=== PATIENT | female | born 1995 | race Caucasian/White ===

== ENCOUNTER → 2019-09-26 08:20 | Outpatient (CLI) | payer MEDICAID | END | disposition home or self-care (01) | LOC: D.LDO 08:20 | PROVIDERS: ATTEND Student in an Organized Health Care Education/Training Program | DX: O26.899 Other specified pregnancy related conditions, unspecified trimester (principal); Z3A.00 Weeks of gestation of pregnancy not specified; R05 Cough ==

== ENCOUNTER → 2019-12-31 10:47 | Outpatient (CLI) | payer MEDICAID | END | disposition home or self-care (01) | LOC: D.LDO 10:47 | PROVIDERS: ATTEND Obstetrics & Gynecology | DX: O36.5930 Maternal care for other known or suspected poor fetal growth, third trimester, not applicable or unspecified (principal); Z3A.34 34 weeks gestation of pregnancy ==

== ENCOUNTER → 2020-01-06 14:41 | Outpatient (CLI) | payer MEDICAID | LOC: D.LDO 14:41 | PROVIDERS: ATTEND Obstetrics & Gynecology | DX: O36.5930 Maternal care for other known or suspected poor fetal growth, third trimester, not applicable or unspecified (principal); Z3A.34 34 weeks gestation of pregnancy ==

== ENCOUNTER 2020-01-20 19:48 | Outpatient (CLI) | payer MEDICAID | END 2020-01-20 20:32 | disposition home or self-care (01) | LOC: D.LDO 19:48 | PROVIDERS: ATTEND Student in an Organized Health Care Education/Training Program | DX: O36.5990 Maternal care for other known or suspected poor fetal growth, unspecified trimester, not applicable or unspecified (principal); Z3A.00 Weeks of gestation of pregnancy not specified ==

== ENCOUNTER 2020-01-24 19:13 | Outpatient (CLI) | payer MEDICAID | END 2020-01-24 19:58 | disposition home or self-care (01) | LOC: D.LDO 19:13 | PROVIDERS: ATTEND Obstetrics & Gynecology | DX: O36.8930 Maternal care for other specified fetal problems, third trimester, not applicable or unspecified (principal); Z3A.37 37 weeks gestation of pregnancy ==

== ENCOUNTER 2020-02-01 10:53 | Outpatient (CLI) | payer MEDICAID ==
[2020-02-01 21:45] VITALS: BMI 24.2
== END 2020-02-01 11:35 | disposition home or self-care (01) ==
LOC: D.LDO 10:53
PROVIDERS: ATTEND Obstetrics & Gynecology
DX: O36.5930 Maternal care for other known or suspected poor fetal growth, third trimester, not applicable or unspecified (principal); Z3A.38 38 weeks gestation of pregnancy

== ENCOUNTER 2020-02-01 21:31 | Inpatient (IN) | payer MEDICAID ==
[~2020-02-01] VITALS: Ht 167.6 cm; Wt 68.0 kg
[2020-02-01 21:45] VITALS: BP 116/58; Ht 167.6 cm; Wt 68.0 kg
[2020-02-01 22:48] LABS: HEMATOCRIT 35.5 % (36.0-48.0); HEMOGLOBIN 11.7 g/dL (12-16); MCH 28.5 pg (26.0-34.0); MCV 86.6 fL (80.0-100.0); MEAN PLATELET VOLUME 10.8 fL (7.4-10.4); RBC 4.1 10x6/uL (4.00-5.40); RDW 14.3 % (11.5-14.5); WBC 9.8 10x3/uL (4.8-10.8)
[2020-02-01 22:56] LABS: UDS - AMPHET NEGATIVE QUAL (NEGATIVE); UDS - BARB NEGATIVE QUAL (NEGATIVE); UDS - BENZO NEGATIVE QUAL (NEGATIVE); UDS - COCAINE NEGATIVE QUAL (NEGATIVE); UDS - OPIATE NEGATIVE QUAL (NEGATIVE); UDS - PCP NEGATIVE QUAL (NEGATIVE); UDS - THC NEGATIVE QUAL (NEGATIVE)
[2020-02-02 19:18] VITALS: BP 118/74
--- NOTE | 2020-02-02 19:18 | NUR ---
THIS RN TO BEDSIDE FOR INTRODUCTIONS AND SHIFT ASSESSMENT. REC'D PT AA&O X 4. PAIN ASSESSED. PT REPORTS SHE IS STILL HAVING ABD CRAMPING EVEN AFTER ADMIN OF TORADOL. TYLENOL 1000MG PO GIVEN AND FRESH ICE WATER SERVED. SEE FLOWSHEET FOR DOC OF ASSESSMENT. PT INFORMED THAT A OOM IS BEING CLEANED FOR HER AND ONCE IT IS CLEANED, SHE WILL BE TRANSFERED. PT VERBALIZES UNDERSTANDING. PT DENIES NEEDS AT THIS TIME. BED LOW, SIDE RAILS UP X 2. CALL LIGHT AT PT'S SIDE. BABY IN ROOM IN OPEN CRIB AT BEDSIDE.
--- NOTE | 2020-02-02 20:00 | NUR ---
ROUNDS MADE. PT INFORMED IT WILL BE ANOTHER FEW MINUTES BEFORE TRANSFER. ADDITIONAL PERIADS PROVIDED. PT DENIES FURTHER NEEDS. PAIN REASSESED. PT REPORTS AFTER VOIDING, HER CRAMPING IS SOME BETTER. RATES 4/10.
--- NOTE | 2020-02-02 21:15 | NUR ---
THIS RN TO BEDSIDE TO TRANSFER PT TO CLEAN ROOM. PT AA&O X 4. PAIN REASSESSED. PT REPORTS CRAMPING IS A LITTLE BETTER. PT INFORMED THAT DR PAUL WAS GIVEN REPORT THAT TORADOL WAS NOT CONTROLLING HER PAIN AND SHE HAS GIVEN AN ORDER THAT TORADOL CAN BE CHANGED TO MOTRIN FOR CRAMPING. PT VERBALIZES UNDERSTANDING. PT TRANSFERED TO [facility]. ORIENTED TO ROOM, CALL LIGHT AND PHONE. ADDITIONAL PANTIES,PADS AND TOWELS PROVIDED. PT [facility] MUG FILLED W/ICE WATER. PT DENIES NEEDS. BABY IN OPEN CRIB AT [facility].
--- NOTE | 2020-02-02 22:23 | NUR ---
ROUNDS MADE. PT CURRENTLY LYING BED W/BABY IN ARMS FOR NURSING. PAIN AND NEEDS ASSESSED. PT DENIES NEEDS AND STATES "MY PAIN IS OK."
--- NOTE | 2020-02-03 00:45 | NUR ---
ROUNDS MADE. PT LYING IN SUPINE POSITION W/EYES CLOSED. OPENS THEM SPONTANEOUSLY W/THIS RN'S ENTRY TO THE ROOM. PAIN AND NEEDS ASSESSED. PT DENIES PAIN. DECLINES OFFER TO ADMIN MOTRIN.
--- NOTE | 2020-02-03 03:00 | NUR ---
THIS RN CALLED TO PT'S ROOM FOR ASSISTANCE W/NURSING. THIS RN REMAINS AT BEDSIDE TO ASSIST W/STIMULATION OF BABY. PAIN REASSESSED. PT REPORTS ABD CRAMPING 11/10.
--- NOTE | 2020-02-03 03:30 | NUR ---
RN OUT OF ROOM AT THIS TIME. BABY TRANSPORTED TO NBN PER PT REQUEST.
--- NOTE | 2020-02-03 04:00 | NUR ---
PT RINGS CALL LIGHT REQUEST SOMETHING TO EAT. SANDWICH TRAY AND ICE CREAM SERVED PER REQUEST. DENIES FURTHER NEEDS.
--- NOTE | 2020-02-03 04:44 | NUR ---
PT MEDICATED W/TYLENOL 1000MG PO FOR C/O ABD CRAMPING. SEE EMAR. DENIES FURTHER NEEDS.
--- NOTE | 2020-02-03 05:00 | NUR ---
REPORT GIVEN TO Rolo QUEZADA RN.
[2020-02-03 06:07] LABS: HEMATOCRIT 38.5 % (36.0-48.0); HEMOGLOBIN 12.3 g/dL (12-16); MCH 28.1 pg (26.0-34.0); MCHC 31.9 g/dL (31.0-37.0); MCV 87.9 fL (80.0-100.0); MEAN PLATELET VOLUME 11.1 fL (7.4-10.4); RBC 4.38 10x6/uL (4.00-5.40); RDW 14.3 % (11.5-14.5); WBC 9.5 10x3/uL (4.8-10.8)
[2020-02-03 07:14] LABS: RAPID PLASMA REAGIN Non Reactive (Non Reactive)
--- NOTE | 2020-02-03 07:35 | NUR ---
AWAKE AND ALERT IN BED COMPLAINING OF PAIN 04/12. PLAYING ON PHONE NO VISIBLE DISTRESS NOTED. MOTRIN GIVEN PER OCT.
--- NOTE | 2020-02-03 07:40 | NUR ---
VSS. ASSESSMENT COMPLETED. CONTINUES TO PLAY ON PHONE AND REQUESTED STRONGER PAIN MEDICINE FOR CRAMPS. EXPLAINED WE WILL HAVE TO CHECK WITH DR SHERIFF. PT AGREED.
[2020-02-03 07:50] VITALS: BP 118/76
--- NOTE | 2020-02-03 08:20 | NUR ---
BABY AT BREAST DENIES NEEDS
--- NOTE | 2020-02-03 08:35 | NUR ---
PT STATED OAIN IS SOME WHAT BETTER. DR COLVIN ORDERED TYLENOL 3. PT DENIES FURTHER NEEDS.
--- NOTE | 2020-02-03 09:40 | NUR ---
COMPLAINING OF PAIN 05/12. BABY AT BREAST NURSING EXPLAINED THAT HER CRAMPING IS HER UTERUS JOE BACK DOWN AND THAT BREAST FEEDING IS THE BEST BUT IT MAKES IT GO DOWN FASTER AND CAN BE PAINFUL. TYLENOL 3 GIVEN PER OCT. PT ASKED ABOUT WHAT MEDS SHE WILL HAVE AT DISCHARGE EXPLAINE DR SHERIFF WROTE A SCRIPT FOR TYLENOL 3.
--- NOTE | 2020-02-03 10:45 | NUR ---
PAIN IS BETTER 3 OR 4. DENIES NEEDS AT THIS TIME.
--- NOTE | 2020-02-03 11:30 | NUR ---
STATED PAIN IS WORSE AGAIN CAN SHE HAVE MEDS EXPLAINED ITS NOT TIME. ENC PT TO GO FOR A WALK OR TRY AN ICE PACK. PT STATED SHE WILL TAKE BABY TO NURSERY AND GO WALK.
--- NOTE | 2020-02-03 12:00 | NUR ---
EATING LUNCH DENIES NEEDS
--- NOTE | 2020-02-03 13:00 | NUR ---
VOMITING AND COMPLAINING OF CRAMPING IN ABDOMEN. REQUESTED PAIN MEDICINE AND SOMETHING FOR NAUSEA. ZOFRAN AND MOTRIN GIVEN PER OCT.
--- NOTE | 2020-02-03 14:46 | NUR ---
ROOM CHECK BABY IN CRIB AT BEDSIDE MOM SLEEPING. MOM STATED PAIN AND NAUSEA IS BETTER BUT SHE WANTS SOMETHING ELSE FOR PAIN. ASKED PT IF SHE IS OK TO GO HOME SHE STATED YES SHE IS READY WHEN BABY IS READY.
--- NOTE | 2020-02-03 15:30 | NUR ---
PT REFUSED RHOGAM, MMR, AND TDAP. ORDER RECIEVED TO GIVE RHOGAM IV.
--- NOTE | 2020-02-03 16:30 | NUR ---
EXPLAINED TO PT ABOUT GIVING RHOGAM IV DILUTED IN SALINE. PT VERBALIZED UNDERSTANDING AND HAS REVIEWED HANDOUT. PT PLANS ON TUBALIGATION AFTER 6 WEEKS BUT AGREED TO IV RHOGAM.
--- NOTE | 2020-02-03 16:50 | NUR ---
RHOGAM GIVEN PER OCT DISCHARGE PAPERWORK REVIEWED AND SIGNED AND PTS COPIES GIVEN. EXPLAINED TO PT THAT SHE WILL HAVE TO CALL THURSDAY MORNING TO SCHEDULE HER FOLLOW UP WITH DR SHERIFF. PT VERBALIZED UNDERSTANDING.
--- NOTE | 2020-02-03 17:19 | NUR ---
BABY IN CARSEAT MOM DECLINED WHEELCHAIR TO FRONT DOOR
== END 2020-02-03 17:20 | disposition home or self-care (01) | DRG 807 ==
LOC: D.LD 21:31
PROVIDERS: ADMIT Obstetrics & Gynecology; ATTEND Obstetrics & Gynecology
PROC: 10E0XZZ Delivery of Products of Conception, External Approach (ICD-10-PCS; principal; 2020-02-03)
DX: O36.5930 Maternal care for other known or suspected poor fetal growth, third trimester, not applicable or unspecified (principal); Z37.0 Single live birth; Z3A.38 38 weeks gestation of pregnancy; Z87.891 Personal history of nicotine dependence